=== PATIENT | male | born 1955 | race Caucasian/White ===

== ENCOUNTER 2019-09-11 10:58 | Inpatient (IN) | payer MEDICARE, SELFPAY ==
[2019-09-11 11:16] VITALS: BP 124/90; RESP 15; O2SAT 97; BMI 28.0
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
--- NOTE | 2019-09-11 11:50 | W.ED.PSYCH ---
HPI - Psych General: Chief Complaint: Psychiatric Symptoms Stated Complaint: 96 hour hold Time Seen by Provider: 09/11/19 11:30 [facility] ED PFSH: Statuses (acute, chronic, etc) shown below reflect problem list status as previously entered and may not be historically accurate Social History Smoking and tobacco status: current every day smoker Coding Level of Care Code ED Pediatric Immunologist for Varghese Villagomez
--- NOTE | 2019-09-11 12:05 | PC.NURSE ---
Patient items placed in designated location. Patient has C-collar placed by Lola ANDREWS that was left on. racking technician sitting with patient outside the room.
[2019-09-11] MEDS: acetaminophen 500 mg Tablet PO (12:16)
[2019-09-11 12:21] LABS: Add Urine Microscopic? NO
[2019-09-11 12:23] LABS: Basophils # 0.1 10^3/uL (0.0-0.1); Basophils % 0.7 %; Eosinophils # 0.5 10^3/uL (0.0-0.8); Hematocrit 44.1 % (42.0-52.0); Hemoglobin 14.5 g/dL (11.7-16.6); Lymphocytes # 1.5 10^3/uL (0.8-4.8); Lymphocytes % 19.2 %; Mean Corpuscular HGB Conc 32.9 g/dL (30.0-36.0); Mean Corpuscular Hemoglobin 31.6 pg (28.0-34.0); Mean Corpuscular Volume 96.1 fL (80-94); Mean Platelet Volume 9.9 fL (7.4-10.4); Monocytes # 0.7 10^3/uL (0.2-0.9); Monocytes % 8.9 %; Neutrophils # 4.9 10^3/uL (1.8-7.7); Neutrophils % 64.9 %; Nucleated Red Blood Cells % 0 %; Platelet Count 301 10^3/cmm (130-400); Red Blood Count 4.59 10^6/uL (4.1-5.3); Red Cell Distribution Width 14.5 % (12.1-15.1); White Blood Count 7.6 10^3/uL (4.0-10.0)
[2019-09-11 12:39] LABS: Bilirubin Urine Neg (NEGATIVE); Blood Urine Neg (Negative); Glucose Urine UA Norm (Normal); Ketones Urine Negative (Negative); Leukocyte Esterase Urine Negative (Negative); Nitrate Urine Negative (Negative); Protein Urine Neg (Negative); Urine Appearance Clear (CLEAR); Urine Color Yellow (Yellow); Urobilinogen Urine Norm (Negative); pH Urine 5 (5-7)
[2019-09-11 12:53] LABS: Amphetamines Screen Urine Negative (Negative); Barbiturates Screen Urine Negative (Negative); Benzodiazepines Screen Urine Negative (Negative); Cocaine Screen Urine Negative (Negative); Opiate Screen Urine Negative (Negative); PCP Screen Urine Negative (Negative); THC Screen Urine Negative (Negative)
[2019-09-11 12:56] LABS: Acetaminophen < 5.0 ug/mL (10-30); Alanine Aminotransferase 25 U/L (0-41); Albumin Level 3.8 g/dL (3.5-5.2); Alcohol Level < 10 mg/dL (0-10); Alkaline Phosphatase 154 IU/L (40-130); Anion Gap 15.6 (5-19); Aspartate Amino Transferase 27 U/L (0-40); Blood Urea Nitrogen 24 mg/dL (8-23); Calcium 10.2 mg/Dl (8.8-10.2); Carbon Dioxide 24 mmol/L (22-29); Chloride 102 mmol/L (98-107); Globulin 3.3 g/dL (1.3-4.6); Glomerular Filtration Rate 51.2 mL/min (90-130); Glucose 109 mg/dL (74-106); Potassium 4.6 mmol/L (3.5-5.1); Salicylate 0.9 mg/dL (3-10); Sodium 137 mmol/L (136-145); Thyroid Stimulating Hormone 4.47 uIU/mL (0.27-4.20); Total Bilirubin 0.5 mg/dL (0.15-1.2); Total Protein 7.1 g/dL (6.6-8.7)
--- NOTE | 2019-09-11 12:58 | PC.NURSE ---
Patient sleeping at this time. 1:1 sitter at bedside.
--- NOTE | 2019-09-11 14:31 | PC.NURSE ---
Patient given meal tray
--- NOTE | 2019-09-11 14:33 | PC.NURSE ---
Patient sitting up in bed eating. 1:1 sitter with patient.
--- NOTE | 2019-09-11 15:08 | PC.NURSE ---
Patient sleeping. 1:1 sitter at bedside.
[2019-09-11 15:38] VITALS: BP 122/76; PULSE 107; RESP 16; O2SAT 97
--- NOTE | 2019-09-11 15:58 | PC.NURSE ---
Patient resting with no complaints
[2019-09-11 16:00] VITALS: BP 122/81; PULSE 105; RESP 20; TEMP 36.8; O2SAT 98
--- NOTE | 2019-09-11 16:00 | PM.MISC ---
Miscellaneous Note Purpose of Documentation: Consulted, but patient to be admitted on 96 hour hold and consult to be discontinued.
[2019-09-11 16:30] VITALS: BP 123/77; PULSE 115; RESP 15; O2SAT 95
[2019-09-11 19:46] VITALS: BP 146/79; PULSE 97; RESP 20; TEMP 36.8; O2SAT 100
[2019-09-12 06:00] VITALS: BP 128/76; PULSE 100; RESP 20; TEMP 36.6; O2SAT 97
[2019-09-12] MEDS: acetaminophen 325 mg Tablet 650 MG PO (10:32)
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
[2019-09-12 12:58] VITALS: BP 128/76; PULSE 100; RESP 20; TEMP 36.6; O2SAT 97
== END 2019-09-12 13:49 | disposition home or self-care (01) | DRG 885 ==
LOC: ER 16:16 → NP 16:50
PROVIDERS: Admitting Provider Psychiatry & Neurology Psychiatry; Emergency Provider Family Medicine; Visit Provider Psychiatry & Neurology Psychiatry
DX: F23 Brief psychotic disorder (principal); F31.9 Bipolar disorder, unspecified; Z79.82 Long term (current) use of aspirin; F17.210 Nicotine dependence, cigarettes, uncomplicated
CPT/HCPCS: 36415; 80053; 80307; 81003; 84443; 85025; 99284

== ENCOUNTER 2019-10-04 09:58 | Inpatient (IN) | payer MEDICARE, SELFPAY ==
[2019-10-04 10:06] VITALS: BP 151/96; PULSE 112; RESP 20; TEMP 36.7; O2SAT 98; BMI 25.7
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
[2019-10-04 10:44] LABS: Basophils % 0.4 %; Eosinophils # 0.1 10^3/uL (0.0-0.8); Eosinophils % 1.6 %; Hematocrit 46.8 % (42.0-52.0); Hemoglobin 15.3 g/dL (11.7-16.6); Lymphocytes # 1.4 10^3/uL (0.8-4.8); Mean Corpuscular HGB Conc 32.7 g/dL (30.0-36.0); Mean Corpuscular Hemoglobin 31.3 pg (28.0-34.0); Mean Corpuscular Volume 95.7 fL (80-94); Mean Platelet Volume 10.9 fL (7.4-10.4); Monocytes # 0.6 10^3/uL (0.2-0.9); Neutrophils # 4.7 10^3/uL (1.8-7.7); Neutrophils % 68.9 %; Nucleated Red Blood Cells % 0 %; Platelet Count 224 10^3/cmm (130-400); Red Blood Count 4.89 10^6/uL (4.1-5.3); Red Cell Distribution Width 13.9 % (12.1-15.1); White Blood Count 6.9 10^3/uL (4.0-10.0)
[2019-10-04 10:59] LABS: Acetaminophen < 5.0 ug/mL (10-30); Alanine Aminotransferase 14 U/L (0-41); Albumin Level 3.7 g/dL (3.5-5.2); Alkaline Phosphatase 218 IU/L (40-130); Anion Gap 14.2 (5-19); Aspartate Amino Transferase 23 U/L (0-40); Blood Urea Nitrogen 11 mg/dL (8-23); Calcium 9.9 mg/dL (8.5-10.5); Carbon Dioxide 24 mmol/L (22-29); Chloride 105 mmol/L (98-107); Creatinine Clr Calc Pharmacy 70.4247; Globulin 3.7 g/dL (1.3-4.6); Glomerular Filtration Rate 55.8 mL/min (90-130); Glucose 116 mg/dL (74-106); Potassium 4.2 mmol/L (3.5-5.1); Salicylate < 0.3 mg/dL (3-10); Sodium 139 mmol/L (136-145); Total Bilirubin 0.5 mg/dL (0.15-1.2); Total Protein 7.4 g/dL (6.6-8.7)
[2019-10-04 11:00] LABS: Alcohol Level < 10 mg/dL (0-10)
[2019-10-04 12:44] LABS: Amphetamines Screen Urine Negative (Negative); Barbiturates Screen Urine Negative (Negative); Benzodiazepines Screen Urine Negative (Negative); Cocaine Screen Urine Negative (Negative); Opiate Screen Urine Negative (Negative); PCP Screen Urine Negative (Negative); THC Screen Urine Negative (Negative)
--- NOTE | 2019-10-04 12:54 | PC.NURSE ---
SITTER OUTSIDE ROOM NO NEEDS VOICED
[2019-10-04 13:43] VITALS: BP 148/89; PULSE 98; RESP 20; O2SAT 99
--- NOTE | 2019-10-04 13:43 | PC.NURSE ---
PATIENT AT [facility]
[2019-10-04 14:20] VITALS: BP 133/74; PULSE 100; RESP 20; TEMP 36.5; O2SAT 100
[2019-10-04] MEDS: acetaminophen 325 mg Tablet 650 MG PO (17:27)
[2019-10-04 20:23] VITALS: BP 141/84; PULSE 95; RESP 18; TEMP 36.8; O2SAT 98
[2019-10-05] MEDS: acetaminophen 325 mg Tablet 650 MG PO ×3 (02:54→17:24)
[2019-10-05 06:00] VITALS: BP 173/110; PULSE 122; RESP 20; TEMP 36.4; O2SAT 98
[2019-10-05 09:02] VITALS: BP 140/85; PULSE 91
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
[2019-10-05 14:18] VITALS: BP 114/83; PULSE 105; RESP 20; TEMP 36.8; O2SAT 99
[2019-10-05 19:49] VITALS: BP 131/84; PULSE 94; O2SAT 97
[2019-10-06] MEDS: acetaminophen 325 mg Tablet 650 MG PO ×4 (00:24→17:48)
[2019-10-06 05:34] VITALS: BP 122/79; PULSE 87; RESP 16; O2SAT 97
[2019-10-06] MEDS: nicotine 2 mg Gum BUCCAL ×3 (07:57→20:40)
--- NOTE | 2019-10-06 08:06 | PC.NURSE ---
Nursing Note; random inspection of clients room completed this morning. No contraband found.
--- NOTE | 2019-10-06 10:31 | PC.NURSE ---
NURSES NOTE; CLIENT IN DAYROOM PARTICIPATING IN GROUP.
[2019-10-06 13:26] VITALS: BP 103/57; PULSE 99; RESP 18; O2SAT 97
[2019-10-06] MEDS: paliperidone ER 6 mg Tablet PO (17:48)
--- NOTE | 2019-10-06 18:20 | PM.NPN ---
Subjective NPU Subjective: Interval history: Presents today reporting that he is doing okay and tolerating the medication. He is not excited about the idea of taking the injection and today he demonstrated some of his paranoia as he was more focused on being sure the wound was in the injection was actually is Invega and not something else. I assured him that we can show him again prior to giving him the injection to assure him that it is in fact the long-acting version of the medication is taken orally and tolerating. Otherwise he expressed paranoia and there is observations of other clients on the male side and he was not very easily reassured that they were not obtaining any special attention. Mental Status Exam MSE Comments: This is a well-nourished well-developed older appearing white male with adequate progress, limited grooming and eye contact. With significant forward flexion of his neck that he reported adequate and do with a neck fracture. No other abnormal movements except for psychomotor retardation. Cooperative with exam in no acute distress. Speech was decreased rate and volume. Mood described as fine, affect subdued. Thought process mostly organized. Thought content: Patient denied any suicidal or homicidal ideations but he cannot explain the aggression reported against his sister, there were no delusions reported, but clear paranoia and persecutory thinking were present, he denies any auditory or visual hallucinations. Attention and concentration were intact and memory appeared unreliable but none were formally tested. He is alert and oriented ?3. Insight and judgment are impaired. Vitals/I&O/Wt Last Vital Signs Temp 98.2 F 10/05/19 14:18 Pulse 99 10/06/19 13:26 Resp 18 10/06/19 13:26 BP 103/57 10/06/19 13:26 Pulse Ox 97 10/06/19 13:26 Data NPU : 10/04/19 10:38 10/04/19 10:38 A&P Additional A&P Information This is a 64-year-old white male with a long history of schizophrenia and psychosis and recent history of multiple inpatient hospitalizations at [facility] [place] after not being here for 7-8 years with significant family conflict and recent 96 hour hold for reports of aggression towards his family with concerns of being off of medication. 1. Continue current medication. We will initiate Invega Sustenna after a couple doses of the oral medication. 2. Encourage individual, group and milieu therapy. 3. Continue every 15 minute checks for safety. 4. Continue work with guardian for discharge planning and appropriate discharge. Involuntary Hold Information 96 Hour Hold: 96 Hour Involuntary Admission: Yes 96 Hour Hold Ending Date: 10/10/19 96 Hour Hold Ending Time: 12:26 Attestations NPU Medical Necessity Statement*: Inpatient hospitalization is medically necessary and the clinically appropriate intervention at this time. We will make sure he is getting his medication daily and get him on the long-acting injectable. Likely length of stay 5-7 days. Coding Level of Care Code Acute Manager Transit for Varghese Villagomez
[2019-10-06 19:53] VITALS: BP 123/69; PULSE 95; RESP 18; TEMP 36.8; O2SAT 96
[2019-10-07 06:00] VITALS: BP 135/90; PULSE 108; RESP 18; O2SAT 99
[2019-10-07] MEDS: acetaminophen 325 mg Tablet 650 MG PO ×2 (06:55→15:05)
[2019-10-07] MEDS: LORazepam 1 mg Tablet PO ×2 (08:12→17:15)
--- NOTE | 2019-10-07 12:14 | PM.NPN ---
Subjective NPU Subjective: Interval history: Clifford presents today reporting that he is doing okay. He is adjusting to the medication. We discussed my concern that he wasn't taking his medication given his paranoid statements that he is making but he is not really responding to the surgeon about him taking his medication or not. Discussed the risks benefits and alternatives of home starting the injection likely tomorrow, and he understood and agreed to proceed as is documented in his note. Mental Status Exam MSE Comments: This is a well-nourished well-developed older appearing white male with adequate progress, limited grooming and eye contact. With significant forward flexion of his neck that he reported adequate and do with a neck fracture. No other abnormal movements except for psychomotor retardation. Cooperative with exam in no acute distress. Speech was decreased rate and volume. Mood described as pretty good, affect subdued. Thought process mostly organized. Thought content: Patient denied any suicidal or homicidal ideations but he cannot explain the aggression reported against his sister, there were no delusions reported, but clear paranoia and persecutory thinking were present, he denies any auditory or visual hallucinations. Attention and concentration were intact and memory appeared unreliable but none were formally tested. He is alert and oriented ?3. Insight and judgment are impaired. Vitals/I&O/Wt Last Vital Signs Temp 98.3 F 10/06/19 19:53 Pulse 108 H 10/07/19 06:00 Resp 18 10/07/19 06:00 BP 135/90 10/07/19 06:00 Pulse Ox 99 10/07/19 06:00 Weight last 48 hrs Weight 86.806 kg Data NPU : 10/04/19 10:38 10/04/19 10:38 A&P Additional A&P Information This is a 64-year-old white male with a long history of schizophrenia and psychosis and recent [place] [facility] [place] being [place] for 7-8 years with significant family conflict and recent 96 hour hold for reports of aggression towards his family with concerns of being off of medication. 1. Continue current medication. We will initiate Invega Sustenna tomorrow. 2. Encourage individual, group and milieu therapy. 3. Continue every 15 minute checks for safety. 4. Continue work with guardian for discharge planning and appropriate discharge. Involuntary Hold Information 96 Hour Hold: 96 Hour Involuntary Admission: Yes 96 Hour Hold Ending Date: 10/10/19 96 Hour Hold Ending Time: 12:26 Attestations NPU Medical Necessity Statement*: Inpatient hospitalization is medically necessary and the clinically appropriate intervention at this time. We will make sure he is getting his medication daily and get him on the long-acting injectable. Likely length of stay 4-6 days. Coding Level of Care Code Acute Alberene Stone Setter for Varghese Villagomez
[2019-10-07 14:00] VITALS: BP 135/90; PULSE 108; RESP 18; TEMP 36.8; O2SAT 99
[2019-10-07] MEDS: paliperidone ER 6 mg Tablet PO (21:24)
[2019-10-07 22:00] VITALS: BP 114/67; PULSE 98; RESP 21; TEMP 36.4; O2SAT 98
[2019-10-08] MEDS: acetaminophen 325 mg Tablet 650 MG PO ×2 (04:45→21:20)
[2019-10-08 06:00] VITALS: BP 108/80; PULSE 106; RESP 21; TEMP 36.4; O2SAT 96
--- NOTE | 2019-10-08 12:50 | PM.NPN ---
Subjective NPU Subjective: Interval history: Clifford presents today reporting that he is feeling better. We discussed him getting the injection tomorrow which he was okay with his only request was that he be able to view the packaging so that he knew we were giving him what we said we were giving him. He reports that he is eating and sleeping okay. We discussed his neck and that this software writer made a hospitalist consult to have been evaluated to see if there was anything we should be doing. He gave Dr. House authorization to get his records from the [facility]. We agreed to await that information and Dr. Caldera's recommendations. Mental Status Exam MSE Comments: This is a well-nourished well-developed older appearing white male with adequate progress, limited grooming and eye contact. With significant forward flexion of his neck that he reported had to do with a neck fracture. No other abnormal movements except for psychomotor retardation. Cooperative with exam in no acute distress. Speech was decreased rate and volume. Mood described as fine, affect subdued. Thought process mostly organized. Thought content: Patient denied any suicidal or homicidal ideations but he cannot explain the aggression reported against his sister, there were no delusions reported, but clear paranoia and persecutory thinking were present, he denies any auditory or visual hallucinations. Attention and concentration were intact and memory appeared unreliable but none were formally tested. He is alert and oriented ?3. Insight and judgment are impaired. Vitals/I&O/Wt Last Vital Signs Temperature 98.1, pulse 103, respirations 16, pulse ox 97%, blood pressure 139/77. Data NPU : 10/04/19 10:38 10/04/19 10:38 A&P Additional A&P Information This is a 64-year-old white male with a long history of schizophrenia and psychosis and recent history of multiple inpatient hospitalizations at [facility] [place] not being here for 7-8 years with significant family conflict and recent 96 hour hold for reports of aggression towards his family with concerns of being off of medication. 1. Continue current medication. We will initiate Invega Sustenna tomorrow. 2. Encourage individual, group and milieu therapy. 3. Continue every 15 minute checks for safety. 4. Continue work with guardian for discharge planning and appropriate discharge. Involuntary Hold Information 96 Hour Hold: 96 Hour Involuntary Admission: Yes 96 Hour Hold Ending Date: 10/10/19 96 Hour Hold Ending Time: 12:26 Attestations NPU Medical Necessity Statement*: Inpatient hospitalization is medically necessary and the clinically appropriate intervention at this time. We will make sure he is getting his medication daily and get him on the long-acting injectable. Likely length of stay 3-5 days. Coding Level of Care Code Acute Client Resolution Specialist for Varghese Villagomez
[2019-10-08 14:00] VITALS: BP 142/76; PULSE 107; RESP 20; TEMP 36.4; O2SAT 97
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
[2019-10-08] MEDS: paliperidone ER 6 mg Tablet PO (20:25)
[2019-10-08 21:22] VITALS: BP 139/77; PULSE 103; RESP 16; TEMP 36.7; O2SAT 97
[2019-10-09 06:00] VITALS: BP 111/70; PULSE 113; RESP 18; TEMP 36.8; O2SAT 97
[2019-10-09] MEDS: acetaminophen 325 mg Tablet 650 MG PO (06:23)
[2019-10-09] MEDS: LORazepam 1 mg Tablet PO ×2 (08:36→20:15)
--- NOTE | 2019-10-09 08:36 | PC.NURSE ---
PRN ATIVAN 1 MG GIVEN PO PER PT C/O ANXIETY. NO OUTWARD ANXIETY NOTED WILL CONT TO MONITOR
[2019-10-09] MEDS: paliperidone palmitate 234 mg Syringe IM (09:06)
--- NOTE | 2019-10-09 09:08 | PC.NURSE ---
INVAARON SUSTENNA 234 MG GIVEN IM ORDERED BY PHYSICIAN. INJECTION GIVEN IN LEFT DELTOID. PT EDUCATED ON MED GIVEN & PT VERBALIZED UNDERSTANDING. WILL CONT TO MONITOR INJECTION SITE FOR ANY REDNESS, SWELLING, OR IRRITATION. LOT [id number] EXP 02/2021
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
--- NOTE | 2019-10-09 10:28 | PC.NURSE ---
off unit for CT scan. accompanied by Security and [employer]AM AND [employer]BINES ASSEMBLER
--- NOTE | 2019-10-09 10:42 | PC.NURSE ---
RETURN TO UNIT FROM CT
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
[2019-10-09 14:00] VITALS: BP 126/76; PULSE 108; RESP 20; TEMP 36.5; O2SAT 99
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
[2019-10-09] MEDS: nicotine 2 mg Gum BUCCAL (19:38)
[2019-10-09] MEDS: paliperidone ER 6 mg Tablet PO (20:15)
[2019-10-09 22:00] VITALS: BP 163/96; PULSE 101; RESP 20; TEMP 36.5; O2SAT 97
[2019-10-10] MEDS: acetaminophen 325 mg Tablet 650 MG PO ×3 (05:24→18:40)
[2019-10-10 06:00] VITALS: BP 115/72; PULSE 113; RESP 19; TEMP 37; O2SAT 100
[2019-10-10] MEDS: nicotine 2 mg Gum BUCCAL (08:54)
[2019-10-10] MEDS: LORazepam 1 mg Tablet PO (08:55)
--- NOTE | 2019-10-10 08:55 | PC.NURSE ---
Addendum entered by Edith Garcia LPN 10/10/19 10:02: MEDICATION EFFECTIVE. NO FURTHER C/O ANXIETY. Original Note: PRN ATIVAN ATIVAN 1MG PO PER PT C/O ANXIETY. WILL CONTINUE TO MONITOR FOR MEDICATION EFFECTIVENESS.
[2019-10-10 14:00] VITALS: BP 143/89; PULSE 104; RESP 18; TEMP 37.1; O2SAT 99
--- NOTE | 2019-10-10 14:40 | P.PN_ITS ---
Subjective NPU Subjective: Interval history: Clifford presents today seeming a little sad her but less paranoid. He reports that he had a tough bit of news from his guardian that he is likely evicted from his last residence which she had been at for 9 or 10 years. He reports he feels cheated because he believes most of the concerns were created from him being in the hospital and not being able to take care of his cat while he was here. However he reports that it looks like his guardian is going to find him another place but he really does not want to move from his current place. He denies any issues from the injection. Mental Status Exam MSE Comments: This is a well-nourished well-developed older appearing white male with adequate progress, limited grooming and eye contact. With significant forward flexion of his neck that he reported had to do with a neck fracture. No other abnormal movements except for psychomotor retardation. Cooperative with exam in no acute distress. Speech was decreased rate and volume. Mood described as better, affect less subdued. Thought process mostly organized. Thought content: Patient denied any suicidal or homicidal ideations, there were no delusions reported, though his paranoia and persecutory thinking are improving , he denies any auditory or visual hallucinations. Attention and concentration were intact and memory appeared unreliable but none were formally tested. He is alert and oriented ?3. Insight and judgment are impaired but improving. Vitals/I&O/Wt Last Vital Signs Blood pressure 98.7, pulse 104, respirations 18, pulse ox 99%, blood pressure 143/89. Data NPU : 10/04/19 10:38 10/04/19 10:38 A&P Additional A&P Information This is a 64-year-old white male with a long history of schizophrenia and psychosis and recent history of [place] [facility] [place] not being [place] for 7-8 years with significant family conflict and recent 96 hour hold for reports of aggression towards his family with concerns of being off of medication. 1. Continue current medication. will need his 2nd invega injection in a week. 2. Encourage individual, group and milieu therapy. 3. Continue every 15 minute checks for safety. 4. Continue work with guardian for discharge planning and appropriate discharge. Involuntary Hold Information 96 Hour Hold: 96 Hour Involuntary Admission: Yes 96 Hour Hold Ending Date: 10/10/19 96 Hour Hold Ending Time: 12:26 Attestations NPU Medical Necessity Statement*: Inpatient hospitalization is medically necessary and the clinically appropriate intervention at this time. We will make sure he is getting his medication daily. Likely length of stay 2-4 days. Coding Level of Care Code Acute Lead Consultant for Varghese Villagomez
[2019-10-10] MEDS: paliperidone ER 6 mg Tablet PO (20:55)
[2019-10-10 22:00] VITALS: BP 134/79; PULSE 103; RESP 20; TEMP 36.3; O2SAT 97
[2019-10-11 06:00] VITALS: BP 125/82; PULSE 104; RESP 19; TEMP 35.9; O2SAT 98
[2019-10-11] MEDS: acetaminophen 325 mg Tablet 650 MG PO ×2 (06:48→19:19)
[2019-10-11] MEDS: nicotine 2 mg Gum BUCCAL ×2 (08:10→18:50)
[2019-10-11] MEDS: hyDROXYzine 25 mg Capsule 50 MG PO ×2 (10:21→18:08)
[2019-10-11 14:00] VITALS: BP 145/82; PULSE 114; RESP 20; TEMP 36.6; O2SAT 100
--- NOTE | 2019-10-11 14:46 | PM.NPN ---
Subjective NPU Subjective: Interval history: Clifford presents today reporting that he has not heard from his guardian but knows that there are referrals being put in for him. He reports that his neck feels much better. We discussed the findings from Dr. House. That he needed to follow-up with outpatient providers to ensure that he gets the appropriate treatment so that his neck does not continue to stay flexed like that. There is no reported need for brace at this time. He endorses that he is feeling better each day. We discussed the possibility of stopping the oral Invega in the next day or so and that he would need to get his next shot within the next week. Mental Status Exam MSE Comments: This is a well-nourished well-developed older appearing white male with adequate progress, limited grooming and eye contact. With significant forward flexion of his neck. No other abnormal movements except for improving psychomotor retardation. Cooperative with exam in no acute distress. Speech was mildly decreased rate and volume. Mood described as better, affect less subdued. Thought process mostly organized. Thought content: Patient denied any suicidal or homicidal ideations, there were no delusions reported or noted, he denies any auditory or visual hallucinations. Attention and concentration were intact and memory appeared unreliable but none were formally tested. He is alert and oriented ?3. Insight and judgment are impaired but improving. Vitals/I&O/Wt Last Vital Signs Temperature 96.7, pulse 104, respirations 19, pulse ox 98%, blood pressure 125/82. Data NPU : 10/04/19 10:38 10/04/19 10:38 A&P Additional A&P Information This is a 64-year-old white male with a long history of schizophrenia and psychosis and recent history of multiple inpatient hospitalizations at [facility] [place] not being here for 7-8 years with significant family conflict and recent 96 hour hold for reports of aggression towards his family with concerns of being off of medication. 1. Continue current medication. will need his 2nd invega injection next week. will discontinue oral invega in a day or so. 2. Encourage individual, group and milieu therapy. 3. Continue every 15 minute checks for safety. 4. Continue work with guardian for discharge planning and appropriate discharge. Involuntary Hold Information 96 Hour Hold: 96 Hour Involuntary Admission: Yes 96 Hour Hold Ending Date: 10/10/19 96 Hour Hold Ending Time: 12:26 Attestations NPU Medical Necessity Statement*: Inpatient hospitalization is medically necessary and the clinically appropriate intervention at this time. We will make sure he is getting his medication daily. Likely length of stay 1-3 days. Coding Level of Care Code Acute Surveillance Agent for Varghese Villagomez
[2019-10-11 20:21] VITALS: BP 120/73; PULSE 116; RESP 20; O2SAT 97
[2019-10-11] MEDS: paliperidone ER 6 mg Tablet PO (21:00)
[2019-10-12 05:16] VITALS: BP 125/72; PULSE 104; RESP 18; O2SAT 96
--- NOTE | 2019-10-12 05:16 | PC.NURSE ---
VITAL SIGNS PATENT REFUSED TEMP BUT ALLOWED STAFF TO PERFORM OTHER VITAL SIGNS.
[2019-10-12] MEDS: nicotine 2 mg Gum BUCCAL ×3 (08:22→20:57)
[2019-10-12] MEDS: acetaminophen 325 mg Tablet 650 MG PO ×3 (08:43→18:31)
--- NOTE | 2019-10-12 13:13 | PC.SOCIAL ---
Important Medicare Message reviewed with guardian Karl Malik, , copy in chart and original to patient.
[2019-10-12 14:00] VITALS: BP 144/89; PULSE 125; RESP 18; TEMP 36.3; O2SAT 99
--- NOTE | 2019-10-12 16:28 | P.PN_ITS ---
Subjective NPU Subjective: Interval history: Clifford presents today reporting that he is feeling a little better. He is able to get his neck to non-flexed by applying pressure on his forehead and denies pain at that point but clearly he still stiff and not very cognizant of the fact that he is holding his neck to the way that he is. He reports that he is feeling better and less paranoid we discussed stopping his oral Invega after tomorrow. Mental Status Exam MSE Comments: This is a well-nourished well-developed older appearing white male with adequate dress, limited grooming and eye contact. With significant forward flexion of his neck. No other abnormal movements except for improving psychomotor retardation. Cooperative with exam in no acute distress. Speech was mildly decreased rate and volume. Mood described as i feel pretty good, affect less subdued. Thought process mostly organized. Thought content: Patient denied any suicidal or homicidal ideations, there were no delusions re ported or noted, he denies any auditory or visual hallucinations. Attention and concentration were intact and memory appeared more reliable but none were formally tested. He is alert and oriented ?3. Insight and judgment are impaired but improving. Vitals/I&O/Wt Last Vital Signs Temperature 97.4, pulse 125, respirations 18, pulse ox 99%, blood pressure 144/89. Data NPU : 10/04/19 10:38 10/04/19 10:38 A&P Additional A&P Information This is a 64-year-old white male with a long history of schizophrenia and psychosis and recent history of multiple inpatient hospitalizations at [facility] [place] after not being here for 7-8 years with significant family conflict and recent 96 hour hold for reports of aggression towards his family with concerns of being off of medication. 1. Continue current medication. will need his 2nd invega injection next week. 2. Encourage individual, group and milieu therapy. 3. Continue every 15 minute checks for safety. 4. Continue work with guardian for discharge planning and appropriate dischar ge. Involuntary Hold Information 96 Hour Hold: 96 Hour Involuntary Admission: Yes 96 Hour Hold Ending Date: 10/10/19 96 Hour Hold Ending Time: 12:26 Attestations NPU Medical Necessity Statement*: Inpatient hospitalization is medically necessary and the clinically appropriate intervention at this time. We will make sure he is getting his medication daily. Likely length of stay 1-3 days. Coding Level of Care Code Acute Medical Territory Manager for Chg Fwd
[2019-10-12] MEDS: trazodone 50 mg Tablet PO (20:24)
[2019-10-12] MEDS: paliperidone ER 6 mg Tablet PO (20:24)
[2019-10-12 20:38] VITALS: BP 130/91; PULSE 121; RESP 18
[2019-10-13] MEDS: acetaminophen 325 mg Tablet 650 MG PO ×3 (05:39→17:34)
[2019-10-13 06:00] VITALS: BP 115/75; PULSE 104; RESP 20; TEMP 36.8; O2SAT 98
[2019-10-13] MEDS: nicotine 2 mg Gum BUCCAL (08:45)
[2019-10-13 14:00] VITALS: BP 120/76; O2SAT 108
--- NOTE | 2019-10-13 19:10 | P.PN_ITS ---
Subjective NPU Subjective: Interval history: Clifford presents today reporting that he has not heard from Karl but he remains optimistic that possibly on Tuesday he might get discharged. We talked about the application that was put in at [facility] as a possibility. Otherwise he felt like he is doing fine at the medication is working well and he denied any issues. Mental Status Exam MSE Comments: This is a well-nourished well-developed older appearing white male with adequate dress, grooming and eye contact. With significant forward flexion of his neck. No other abnormal movements except for improving psychomotor retardation. Cooperative with exam in no acute distress. Speech was mildly decreased rate and volume. Mood described pretty good, affect less subdued. Thought process mostly organized. Thought content: Patient denied any suicidal or homicidal ideations, there were no delusions reported or noted, he denies any auditory or visual hallucinations. Attention and concentration were intact and memory appeared more reliable but none were formally tested. He is alert and oriented ?3. Insight and judgment are impaired but improving. Vitals/I&O/Wt Last Vital Signs Temp 98.2 F 10/13/19 06:00 Pulse 104 H 10/13/19 06:00 Resp 20 H 10/13/19 06:00 BP 120/76 10/13/19 14:00 Pulse Ox 108 H 10/13/19 14:00 Data NPU : 10/04/19 10:38 10/04/19 10:38 A&P Additional A&P Information This is a 64-year-old white male with a long history of schizophrenia and psychosis and recent history of multiple inpatient hospitalizations at [facility] [place] after not being here for 7-8 years with significant family conflict and recent 96 hour hold for reports of aggression towards his family with concerns of being off of medication. 1. Continue current medication. will need his 2nd invega injection next week. 2. Encourage individual, group and milieu therapy. 3. Continue every 15 minute checks for safety. 4. Continue work with guardian for discharge planning and appropriate discharge. Involuntary Hold Information 96 Hour Hold: 96 Hour Involuntary Admission: Yes 96 Hour Hold Ending Date: 10/10/19 96 Hour Hold Ending Time: 12:26 Attestations NPU Medical Necessity Statement*: Inpatient hospitalization is medically necessary and the clinically appropriate intervention at this time. We will make sure he is getting his medication daily. Likely length of stay 2-3 days. Coding Level of Care Code Acute Departmental Shipping Clerk for Varghese Villagomez
[2019-10-13 20:39] VITALS: BP 156/75; PULSE 102; RESP 16; O2SAT 99
[2019-10-13] MEDS: paliperidone ER 6 mg Tablet PO (21:18)
[2019-10-14 05:32] VITALS: BP 155/79; PULSE 96; RESP 18; TEMP 36.1; O2SAT 97
[2019-10-14 06:00] VITALS: BMI 27.3
[2019-10-14] MEDS: acetaminophen 325 mg Tablet 650 MG PO ×2 (07:23→21:00)
[2019-10-14] MEDS: nicotine 2 mg Gum BUCCAL ×2 (12:02→16:36)
[2019-10-14 13:25] VITALS: BP 126/84
[2019-10-14 14:06] VITALS: BP 125/75; PULSE 104; RESP 17; TEMP 36.9; O2SAT 97
--- NOTE | 2019-10-14 16:05 | PM.NPN ---
Subjective NPU Subjective: Interval history: Clifford presents today fairly frustrated at the prospect that he cannot be placed in another apartment. He reports that he pays about 300 a month where he is and he still feels that he is being unfairly affected. He continues to have his neck bent over very significantly and he has limited insight into the behavior and focused on the fact that he wanted to see the ground as he was walking. Mental Status Exam MSE Comments: This is a well-nourished well-developed older appearing white male with adequate dress, grooming and eye contact. With significant forward flexion of his neck. No other abnormal movements except for improving psychomotor retardation. Cooperative with exam in no acute distress. Speech was normal rate and volume. Mood described pretty good, affect less subdued. Thought process mostly organized. Thought content: Patient denied any suicidal or homicidal ideations, there were no delusions reported or noted, he denies any auditory or visual hallucinations. Attention and concentration were intact and memory appeared more reliable but none were formally tested. He is alert and oriented ?3. Insight and judgment are impaired but improving. Vitals/I&O/Wt Last Vital Signs Temperature 98.5, pulse 104, respirations 17, pulse ox 97%, blood pressure 125/75. Weight last 48 hrs Weight 91.682 kg Data NPU : 10/04/19 10:38 10/04/19 10:38 A&P Additional A&P Information This is a 64-year-old white male with a long history of schizophrenia and psychosis and [place] [facility] [place] for 7-8 years with significant family conflict and recent 96 hour hold for reports of aggression towards his family with concerns of being off of medication. 1. Continue current medication. will need his 2nd invega injection this week 2. Encourage individual, group and milieu therapy. 3. Continue every 15 minute checks for safety. 4. Continue work with guardian for discharge planning and appropriate discharge. Involuntary Hold Information 96 Hour Hold: 96 Hour Involuntary Admission: Yes 96 Hour Hold Ending Date: 10/10/19 96 Hour Hold Ending Time: 12:26 Attestations NPU Medical Necessity Statement*: Inpatient hospitalization is medically necessary and the clinically appropriate intervention at this time. We will make sure he is getting his medication daily. Likely length of stay 1-2 days. Coding Level of Care Code Acute Interventional Tech for Varghese Villagomez
[2019-10-14] MEDS: paliperidone ER 6 mg Tablet PO (21:00)
[2019-10-14 21:41] VITALS: BP 116/72; PULSE 107; RESP 20; TEMP 37.1; O2SAT 98
[2019-10-15 06:00] VITALS: BP 133/79; PULSE 100; RESP 20; TEMP 35.9; O2SAT 98
[2019-10-15] MEDS: acetaminophen 325 mg Tablet 650 MG PO ×3 (08:18→17:56)
[2019-10-15] MEDS: nicotine 2 mg Gum BUCCAL (13:54)
[2019-10-15 14:00] VITALS: BP 136/84; PULSE 105; RESP 18; TEMP 37.1; O2SAT 98
--- NOTE | 2019-10-15 16:05 | P.PN_ITS ---
Subjective NPU Subjective: Interval history: Clifford presents today reporting that he is feeling better. He shaved since yesterday and is hopeful that maybe he gets to leave. We discussed the fact that [employer] may have an opening and that he could possibly be discharged tomorrow to there. He is still somewhat frustrated at the fact that going to [employer] would create a situation where he might have to give up some other freedoms because the amount of money he feels they would allow him to keep would not allow him to continue maintaining a vehicle and insurance and things of that nature. Mental Status Exam MSE Comments: This is a well-nourished well-developed older appearing white male with adequate dress, grooming and eye contact. With significant forward flexion of his neck. No other abnormal movements except for improving psychomotor retardation. Cooperative with exam in no acute distress. Speech was normal rate and volume. Mood described pretty good, affect brighter. Thought process mostly organized. Thought content: Patient denied any suicidal or homicidal ideations, there were no delusions reported or noted, he denies any auditory or visual hallucinations. Attention and concentration were intact and memory appeared more reliable but none were formally tested. He is alert and oriented ?3. Insight and judgment are improving. Vitals/I&O/Wt Last Vital Signs Temp 98.7 F 10/15/19 14:00 Pulse 105 H 10/15/19 14:00 Resp 18 10/15/19 14:00 BP 136/84 10/15/19 14:00 Pulse Ox 98 10/15/19 14:00 Weight last 48 hrs Weight 91.682 kg Data NPU : 10/04/19 10:38 10/04/19 10:38 A&P Additional A&P Information This is a 64-year-old white male with a long history of schizophrenia and psychosis and recent history of multiple inpatient hospitalizations at [facility] [place] after not being here for 7-8 years with significant family conflict and recent 96 hour hold for reports of aggression towards his family with concerns of being off of medication. 1. Continue current medication. will need his 2nd invega injection this week 2. Encourage individual, group and milieu therapy. 3. Continue every 15 minute checks for safety. 4. Continue work with guardian for discharge planning and appropriate discharge. Involuntary Hold Information 96 Hour Hold: 96 Hour Involuntary Admission: Yes 96 Hour Hold Ending Date: 10/10/19 96 Hour Hold Ending Time: 12:26 Attestations NPU Medical Necessity Statement*: Inpatient hospitalization is medically necessary and the clinically appropriate intervention at this time. We will make sure he is getting his medication daily. Likely length of stay 1-2 days. Coding Level of Care Code Acute General Maintenance Technician for Varghese Villagomez
[2019-10-15] MEDS: paliperidone ER 6 mg Tablet PO (20:44)
[2019-10-15 22:00] VITALS: BP 168/95; PULSE 92; RESP 20; TEMP 36.5; O2SAT 98
[2019-10-16 06:00] VITALS: BP 124/81; PULSE 78; RESP 19; TEMP 36.4; O2SAT 97
[2019-10-16] MEDS: acetaminophen 325 mg Tablet 650 MG PO ×3 (08:36→20:38)
--- NOTE | 2019-10-16 12:30 | PM.NPN ---
Subjective NPU Subjective: Interval history: Clifford presented today reporting that he is doing okay. He expressed interest in wanting to be discharged. He does not understand why he has to go the placement and can just go back to this place. We continue to review the situation and that his guardian is working hard to get him out of here quickly. We discussed the fact that this quality analyst/technical writer would not be here tomorrow and likely he will be discharged prior to this quality analyst/technical writer returning. He reports that he is eating okay and sleeping fairly well. Mental Status Exam MSE Comments: This is a well-nourished well-developed older appearing white male with adequate dress, grooming and eye contact. With significant forward flexion of his neck. No other abnormal movements except for improving psychomotor retardation. Cooperative with exam in no acute distress. Speech was normal rate and volume. Mood described alright, affect brighter. Thought process mostly organized. Thought content: Patient denied any suicidal or homicidal ideations, there were no delusions reported or noted, he denies any auditory or visual hallucinations. Attention and concentration were intact and memory appeared more reliable but none were formally tested. He is alert and oriented ?3. Insight and judgment are improving. Vitals/I&O/Wt Last Vital Signs Temperature 97.6, pulse 78, respirations 19, pulse ox 97%, blood pressure 124/81. Data NPU : 10/04/19 10:38 10/04/19 10:38 A&P Additional A&P Information This is a 64-year-old white male with a long history of schizophrenia and psychosis and recent history of multiple inpatient hospitalizations at [facility] after not being here for 7-8 years with significant family conflict and recent 96 hour hold for reports of aggression towards his family with concerns of being off of medication. 1. Continue current medication. will need his 2nd invega injection this week 2. Encourage individual, group and milieu therapy. 3. Continue every 15 minute checks for safety. 4. Continue work with guardian for discharge planning and appropriate discharge. Involuntary Hold Information 96 Hour Hold: 96 Hour Involuntary Admission: Yes 96 Hour Hold Ending Date: 10/10/19 96 Hour Hold Ending Time: 12:26 Attestations NPU Medical Necessity Statement*: Inpatient hospitalization is medically necessary and the clinically appropriate intervention at this time. We will make sure he is getting his medication daily. Likely length of stay 1-2 days. Will stay until placement bed opens up. Coding Level of Care Code Acute Cytology Manager for Varghese Villagomez
[2019-10-16 13:30] VITALS: BP 148/84; PULSE 98; RESP 20; TEMP 36.3; O2SAT 98
--- NOTE | 2019-10-16 13:57 | PC.SOCIAL ---
Reviewed previously signed page 2 Important Medicare Message with guardian. Updated copy in chart.
[2019-10-16] MEDS: paliperidone ER 6 mg Tablet PO (20:28)
[2019-10-16 21:10] VITALS: BP 138/74; PULSE 101; RESP 22; TEMP 36.3; O2SAT 98
[2019-10-17 06:00] VITALS: BP 142/74; PULSE 100; RESP 18; TEMP 37.1; O2SAT 97
[2019-10-17] MEDS: acetaminophen 325 mg Tablet 650 MG PO ×3 (07:29→18:30)
[2019-10-17] MEDS: paliperidone palmitate 156 mg Syringe IM (09:12)
--- NOTE | 2019-10-17 09:12 | PC.NURSE ---
KEVIN SUSTENNA 156 MG INJECTION GIVEN ORDERED IN LEFT DELTOID. PT EDUCATED ON MED & VERBALIZED UNDERSTANDING. WILL CONT TO MONITOR INJECTION SITE FOR ANY REDNESS, SWELLING, OR IRRITATION.
[2019-10-17 14:00] VITALS: BP 155/88; PULSE 109; RESP 20; TEMP 36.8; O2SAT 99
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
[2019-10-17 19:55] VITALS: BP 132/77; PULSE 99; RESP 19; O2SAT 98
[2019-10-17] MEDS: hyDROXYzine 25 mg Capsule 50 MG PO (20:38)
[2019-10-17] MEDS: paliperidone ER 6 mg Tablet PO (20:38)
[2019-10-18 06:00] VITALS: BP 113/76; PULSE 128; RESP 17; O2SAT 97
[2019-10-18] MEDS: acetaminophen 325 mg Tablet 650 MG PO ×2 (06:28→14:59)
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
[2019-10-18 14:00] VITALS: BP 132/79; PULSE 112; RESP 20; TEMP 36.7; O2SAT 99
--- NOTE | 2019-10-18 14:47 | PC.SOCIAL ---
Important Medicare Message Reviewed updated previously reviewed Important Medicare Message. Updated copy provided to patient.
[2019-10-18 20:17] VITALS: BP 157/82; PULSE 97; RESP 19; O2SAT 99
[2019-10-18] MEDS: paliperidone ER 6 mg Tablet PO (21:27)
[2019-10-18] MEDS: hyDROXYzine 25 mg Capsule 50 MG PO (21:27)
[2019-10-19 06:00] VITALS: BP 125/85; PULSE 116; RESP 17; O2SAT 97
--- NOTE | 2019-10-19 11:59 | PC.SOCIAL ---
ride to [address] [address]. trip #[id number].
--- NOTE | 2019-10-19 12:01 | PC.SOCIAL ---
guardian came and talked to patient about the plan. medicaid number [id number]
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
[2019-10-19 12:09] VITALS: BP 125/85; PULSE 116; RESP 17; TEMP 36.7; O2SAT 97
== END 2019-10-19 12:53 | disposition home or self-care (01) | DRG 885 ==
LOC: ER 11:53 → NP 12:50
PROVIDERS: Admitting Provider Psychiatry & Neurology Psychiatry; Emergency Provider Physician Assistant; Visit Provider Psychiatry & Neurology Psychiatry
DX: F23 Brief psychotic disorder (principal); M54.2 Cervicalgia; R45.850 Homicidal ideations; Z79.82 Long term (current) use of aspirin; Z87.891 Personal history of nicotine dependence
CPT/HCPCS: 12345; 36415; 72125; 80053; 80307; 85025; 96372; 99282

== ENCOUNTER → 2019-11-07 10:50 | Outpatient (BNVA) | payer MEDICARE, MEDICAID, SELFPAY | PROVIDERS: Visit Provider Nurse Practitioner Psychiatric/Mental Health | DX: F25.0 Schizoaffective disorder, bipolar type (principal); F10.11 Alcohol abuse, in remission | CPT/HCPCS: 99214 ==

== ENCOUNTER → 2019-11-14 14:17 | Outpatient (BNVA) | payer MEDICARE, MEDICAID, SELFPAY | PROVIDERS: Visit Provider Nurse Practitioner Psychiatric/Mental Health | DX: F25.0 Schizoaffective disorder, bipolar type (principal); F10.11 Alcohol abuse, in remission | CPT/HCPCS: 99214 ==

== ENCOUNTER → 2019-12-10 08:59 | Outpatient (BNVA) | payer MEDICARE, MEDICAID, SELFPAY | PROVIDERS: Visit Provider Nurse Practitioner Psychiatric/Mental Health | DX: F25.0 Schizoaffective disorder, bipolar type (principal); F10.11 Alcohol abuse, in remission | CPT/HCPCS: 99214 ==

== ENCOUNTER 2021-07-09 13:03 | Outpatient (CLI) | payer MEDICARE, MEDICAID, SELFPAY ==
--- NOTE | 2021-07-09 13:08 | XR_ITS ---
WS: [id number] CERVICAL SPINE 3 VIEWS HISTORY: KYPHOTIC DEFORMITY COMPARISON: None available. Patient's head is held in marked hyperflexion. 2 to 3 mm anterolisthesis of C2, C3 and C4. No fractur es are identified. Very difficult imaging in the AP projection due to the marked hyperflexion and kyp hosis in the upper thoracic spine. No soft tissue abnormality. XR/XR cervical spine 3V* [id number] IMPRESSION: 1. Limited evaluation of the cervical spine due to marked kyphosis in the uppe r thoracic spine and hyperflexion of the cervical spine. 2. 2 to 3 mm anterolisthesis of C2, C3 and C4. 3. No fractures.
== END 2021-07-09 13:04 | disposition home or self-care (01) ==
PROVIDERS: Visit Provider Family Medicine
DX: M40.202 Unspecified kyphosis, cervical region (principal)
CPT/HCPCS: 72040

== ENCOUNTER → 2023-02-17 09:14 | Outpatient (BNVA) | payer MEDICARE, OTHER, SELFPAY | PROVIDERS: Visit Provider Nurse Practitioner | DX: Z79.899 Other long term (current) drug therapy (principal) | CPT/HCPCS: 80061; 83036 ==

== ENCOUNTER 2023-06-21 11:05 | Outpatient (CLI) | payer MEDICARE, MEDICAID, SELFPAY ==
--- NOTE | 2023-06-21 11:19 | CT_ITS ---
WS: [id number] CT FACIAL BONES TECHNIQUE: Contrast-enhanced facial bones with coronal and sagittal reformatted images. CLINICAL INFORMATION: CELLUTITIS OF FACE COMPARISON: None. DLP: 623.[address] scans at [facility] use at least one of these dose optimization techniques: automated e xposure control; mA and/or kV adjustment per patient size (includes targeted exams where dose is matc hed to clinical indication); or iterative reconstruction. FINDINGS: Soft tissue edema involving the anterior nasal bones and facial soft tissues more prominent on the RI GHT extending about the RIGHT orbit compatible with cellulitis. No evidence of drainable abscess or f luid collection. No evidence of post septal intraorbital extension. Mastoid air cells are well aerated. Mild mucosal thickening in the paranasal sinuses. Partially visualized submandibular glands are normal. Some images degraded by swallowing artifact. No rmal posterior nasopharynx and parapharyngeal fat. Partial visualized parotid glands appear normal. C hronic 3 to 4 mm RIGHT to LEFT nasal septal deviation with leftward directed spur. IMPRESSION: 1. RIGHT anterior nasal and RIGHT periorbital cellulitis. No drainable abscess or fluid collection. 2. Paranasal sinuses are well aerated. Mild mucosal thickening ethmoid air cells. 3. No other acute findings.
[2023-06-21] MEDS: iohexol 350 mg/mL 500 mL Btl (per mL) IV (11:40)
== END 2023-06-21 11:06 | disposition home or self-care (01) ==
LOC: RAD 11:07
PROVIDERS: Visit Provider Nurse Practitioner Family
DX: L03.211 Cellulitis of face (principal); L03.213 Periorbital cellulitis
CPT/HCPCS: 70487; Q9967

== ENCOUNTER → 2024-03-06 09:18 | Outpatient (BNVA) | payer MEDICARE, OTHER, SELFPAY | PROVIDERS: Visit Provider Nurse Practitioner | DX: Z79.899 Other long term (current) drug therapy (principal) | CPT/HCPCS: 80061; 83036 ==

== ENCOUNTER → 2025-03-15 09:26 | Outpatient (BNVA) | payer MEDICARE, SELFPAY | PROVIDERS: Visit Provider Nurse Practitioner | DX: Z79.899 Other long term (current) drug therapy (principal) | CPT/HCPCS: 80061; 83036 ==